=== PATIENT | male | born 1990 | race Two or more races ===

== ENCOUNTER 2018-05-29 13:06 | Emergency (ER) | payer SELFPAY ==
[2018-05-29] MEDS ORDERED: FAMOTIDINE 20 MG TABLET PO ONE (13:42)
[2018-05-29] MEDS ORDERED: ONDANSETRON 4 MG TAB.RAPDIS PO ONE (13:42)
--- NOTE | 2018-05-29 13:44 | ER Document Report ---
ED Medical Screen (RME) - General Chief Complaint: Nausea/Vomiting Stated Complaint: VOMITING BLOOD Time Seen by Provider: 05/29/18 13:23 Mode of Arrival: Ambulatory Information source: Patient Notes: 28-year-old male presents with complaint of nausea, vomiting that started 2 days prior to arrival. Patient has had 4 episodes of vomiting and noticed blood in his emesis last night and this morning. He describes it as thin streaking of blood. He denies any throwing up of clots, black stools. States he believes he was food poisoned. I have greeted and performed a rapid initial assessment of this patient. A comprehensive ED assessment and evaluation of the patient, analysis of test results and completion of medical decision making process we will be contacted by additional ED providers. PHYSICAL EXAMINATION: Vital signs reviewed-within normal limits GENERAL: Well-appearing, well-nourished and in no acute distress. LUNGS: No respiratory distress Musculoskeletal: Normal range of motion NEUROLOGICAL: Normal speech, normal gait. PSYCH: Normal mood, normal affect. SKIN: Warm, Dry, normal turgor, no rashes or lesions noted. TRAVEL OUTSIDE OF THE [place] IN LAST 30 DAYS: No - HPI Onset: Yesterday Onset/Duration: Sudden Quality of pain: Burning Severity: Mild Associated Symptoms: Chest pain, Nausea, Vomiting Exacerbated by: Denies Relieved by: Denies Similar symptoms previously: Yes Recently seen / treated by doctor: Yes - Related Data Smoking: Non-smoker Frequency of alcohol use: Occasional Drug Abuse: None Allergies/Adverse Reactions: No Known Allergies Allergy (Unverified 05/29/18 13:07) Physical Exam - Vital signs Vitals: Temp Pulse Resp BP Pulse Ox 98.9 F 93 18 116/77 97 05/29/18 13:25 05/29/18 13:25 05/29/18 13:25 05/29/18 13:25 05/29/18 13:25 Course - Vital Signs Vital signs: Temp Pulse Resp BP Pulse Ox 98.9 F 93 18 116/77 97 05/29/18 13:25 05/29/18 13:25 05/29/18 13:25 05/29/18 13:25 05/29/18 13:25
[2018-05-29 14:35] LABS: ABSOLUTE LYMPHOCYTES (AUTO) 1.2 10^3/uL (0.5-4.7); ABSOLUTE MONOCYTES (AUTO) 1.1 10^3/uL (0.1-1.4); ABSOLUTE NEUT (AUTO) 15.1 10^3/uL (1.7-8.2); BASOPHILS % (AUTO) 0.2 % (0-2); HEMATOCRIT 48.9 % (37.9-51.0); HEMOGLOBIN 17.3 g/dL (13.5-17.0); LYMPHOCYTES % (AUTO) 6.7 % (13-45); MEAN CORPUSCULAR HEMOGLOBIN 30.9 pg (27.0-33.4); MEAN CORPUSCULAR HGB CONC 35.4 g/dL (32.0-36.0); MEAN CORPUSCULAR VOLUME 87 fl (80-97); MONOCYTES % (AUTO) 6.1 % (3-13); PLATELET COUNT 226 10^3/uL (150-450); RED CELL DISTRIBUTION WIDTH 13.4 % (11.5-14.0); TOTAL CELLS COUNTED % (AUTO) 100 %; WHITE BLOOD COUNT 17.3 10^3/uL (4.0-10.5)
[2018-05-29 14:50] LABS: ALANINE AMINOTRANSFERASE 118 U/L (21-72); ALKALINE PHOSPHATASE 287 U/L (38-126); ANION GAP 14 (5-19); ASPARTATE AMINO TRANSFERASE 68 U/L (17-59); BILIRUBIN,DIRECT 0.3 mg/dL (0.0-0.4); BILIRUBIN,TOTAL 1.3 mg/dL (0.2-1.3); BLOOD UREA NITROGEN 11 mg/dL (7-20); CALCIUM 10.3 mg/dL (8.4-10.2); CARBON DIOXIDE 31 mmol/L (22-30); CHLORIDE 98 mmol/L (98-107); GLUCOSE 111 mg/dL (75-110); POTASSIUM 3.7 mmol/L (3.6-5.0); SODIUM 142.7 mmol/L (137-145); TOTAL PROTEIN 8.5 g/dL (6.3-8.2)
--- NOTE | 2018-05-29 15:02 | RADIOLOGY REPORT (SQ) ---
EXAM DESCRIPTION: CHEST 2 VIEWS COMPLETED DATE/TIME: 05/29/2018 2:54 pm REASON FOR STUDY: Chest pain COMPARISON: None. EXAM PARAMETERS: NUMBER OF VIEWS: two views TECHNIQUE: Digital Frontal and Lateral radiographic views of the chest acquired. RADIATION DOSE: NA LIMITATIONS: none FINDINGS: LUNGS AND PLEURA: No consolidation, pneumothorax or pleural effusion. MEDIASTINUM AND HILAR STRUCTURES: No masses or contour abnormalities. HEART AND VASCULAR STRUCTURES: Heart normal size. No evidence for failure. BONES: No acute findings. HARDWARE: None in the chest. IMPRESSION: NO ACUTE RADIOGRAPHIC FINDING IN THE CHEST. TECHNICAL DOCUMENTATION: JOB ID: [id number] [employer]- All Rights Reserved Reading location - IP/workstation name: [email or web address]
[2018-05-29] MEDS ORDERED: CHLORPROMAZINE HCL 50 MG TABLET PO ONE ×2 (15:05→19:08)
[2018-05-29] MEDS ORDERED: DIPHENHYDRAMINE HCL 50 MG/ML VIAL IV ONE ×2 (15:08→19:08)
--- NOTE | 2018-05-29 19:14 | ER Document Report ---
ED GI/ - General Chief Complaint: Nausea/Vomiting Stated Complaint: VOMITING BLOOD Time Seen by Provider: 05/29/18 13:23 Mode of Arrival: Ambulatory Information source: Patient, Parent Notes: Patient is a 28-year-old male who comes emergency room complaining of onset of hiccups 2-1/2 days ago and and vomiting starting 2 nights ago where he is coughing up some bloody tinged mucus. He states that it is bright red blood when he does come up. The hiccups actually been going on for 3 total days preceded all of his other discomfort and complaints. Patient denies any medical problems in the past he denies taking any medications. He does smoke a hookah 2-3 times a week. He is currently attending college. He is had some chest pain with his cough and with a constant hiccuping. There is no family history of coronary disease. TRAVEL OUTSIDE OF THE [place] IN LAST 30 DAYS: No - HPI Patient complains to provider of: Abdominal pain Onset: Other - 3 total days Timing/Duration: Sudden - With gradual increase in intensity. Quality of pain: Cramping, Pressure, Sharp Severity at maximum: Severe Severity in ED: Moderate Pain Level: 3 Location: Chest pain, Epigastric Sexual history: Active Associated symptoms: Blood in emesis, Nausea, Vomiting. denies: Blood in stool Exacerbated by: Supine Relieved by: Standing, Other - Walking Similar symptoms previously: Yes Recently seen / treated by doctor: No - Related Data Allergies/Adverse Reactions: No Known Allergies Allergy (Unverified 05/29/18 13:07) Past Medical History - General Information source: Parent, Relative - Social History Smoking Status: Current Some Day Smoker Cigarette use (# per day): No - Smokes a hookah Chew tobacco use (# tins/day): No Smoking Education Provided: Yes Frequency of alcohol use: Occasional Drug Abuse: None Lives with: Family Family History: Reviewed & Not Pertinent Patient has suicidal ideation: No Patient has homicidal ideation: No Renal/ Medical History: Denies: Hx Peritoneal Dialysis Review of Systems - Review of Systems Constitutional: No symptoms reported EENT: No symptoms reported Cardiovascular: See HPI, Chest pain Respiratory: See HPI, Cough. denies: Short of breath, Sputum, Wheezing Gastrointestinal: See HPI, Abdominal pain, Nausea, Vomiting, Poor appetite Genitourinary: No symptoms reported Male Genitourinary: No symptoms reported Musculoskeletal: No symptoms reported Skin: No symptoms reported Hematologic/Lymphatic: No symptoms reported Neurological/Psychological: No symptoms reported -: Yes All other systems reviewed and negative Physical Exam - Vital signs Vitals: Temp Pulse Resp BP Pulse Ox 98.9 F 93 18 116/77 97 05/29/18 13:25 05/29/18 13:25 05/29/18 13:25 05/29/18 13:25 05/29/18 13:25 Interpretation: Normal - Notes Notes: PHYSICAL EXAMINATION: GENERAL: Patient is a well-nourished well-developed 28-year-old male who is in no acute distress on physical exam today. However patient does not appear to be feeling well. He does appear to be somewhat ill-appearing. Patient states he could be because he has not slept in 3 days because of the hiccuping. HEAD: Atraumatic, normocephalic. EYES: Pupils equal round and reactive to light, extraocular movements intact, sclera anicteric, conjunctiva are normal. ENT: Nares patent, oropharynx clear without exudates. Moist mucous membranes. NECK: Normal range of motion, supple without lymphadenopathy LUNGS: Breath sounds clear to auscultation bilaterally and equal. No wheezes rales or rhonchi. HEART: Regular rate and rhythm without murmurs ABDOMEN: Abdominal examination shows patient to have bowel sounds in all 4 quads. The abdomen is soft and nontender with the exception of an area directly midepigastric to palpation. There is no Rivera sign and there is no left-sided tenderness. All the discomfort seems to focus midepigastric. Musculoskeletal: Normal range of motion, no pitting or edema. No cyanosis. NEUROLOGICAL: Normal speech, normal gait. Normal sensory, motor exams PSYCH: Normal mood, normal affect. SKIN: Warm, Dry, normal turgor, no rashes or lesions noted. Course - Re-evaluation Re-evalutation: 05/29/18 19:17 Patient's been in ER an extended period time today because we have been going slow. Patient was first seen by Dr. Mitchell upfront EKG was performed that showed some ST inversions in multiple leads primarily lead III 5 and 6 which were not actually convinced that they are in acute situation. We have no old EKGs to compare against. Patient did not describe cardiac type chest pain. He also had a positive stool guaiac which was also a little puzzling since patient states he is only coughed up a small amount of blood twice. On physical exam of the rectal area there were no external hemorrhoids and I do not feel any abnormalities inside. Patient appeared very uncomfortable in talking to him because he could not stop his hiccups. Every other word patient was doing a hiccup. This may be the culprit of most of his discomfort and pain. I did treat him with 50 mg of Thorazine p.o. and he got relief with that in the 25 of Benadryl I gave him IV. He was able to sleep here in the ER feels much better. I would continue him on the Thorazine at this time for the next 2-3 days. I have discussed the case with Dr. Mitchell and she is in agreement that we will get patient referral to GI as an outpatient and to have him return tomorrow for a recheck. He currently does not have a primary care physician. We will also place him on a H2 cralene and some Carafate along with the Thorazine. Patient' s labs were just mildly abnormal if 17,000 white count which may be attributed to demargination. His liver functions were just slightly above and AST and ALT of 60 and 125 of believe and a alk phos that was like 200. Again nothing totally abnormal. Patient has improved since being in the ER and as stated as the reason for sending him home. His second EKG came back with not as much amplitude in the inversions this could be because of placement or may be slightly getting better. Patient is in favor of going home and will return if he has any concerns at all. - Vital Signs Vital signs: Temp Pulse Resp BP Pulse Ox 98.9 F 93 18 116/77 97 05/29/18 13:25 05/29/18 13:25 05/29/18 13:25 05/29/18 13:25 05/29/18 13:25 - Laboratory Result Diagrams: 05/29/18 14:05 05/29/18 14:05 Laboratory results interpreted by me: 05/29/18 05/29/18 14:05 14:05 WBC 17.3 H RBC 5.60 H Hgb 17.3 H Seg Neutrophils % 87.0 H Lymphocytes % 6.7 L Absolute Neutrophils 15.1 H Carbon Dioxide 31 H Glucose 111 H Calcium 10.3 H AST 68 H ALT 118 H Alkaline Phosphatase 287 H Total Protein 8.5 H Discharge - Discharge Clinical Impression: Intractable hiccups, Upper GI bleed Gastric ulcer Qualifiers: Gastric ulcer chronicity: acute Gastric ulcer complication status: unspecified whether hemorrhage or perforation present Qualified Code(s): K25.3 - Acute gastric ulcer without hemorrhage or perforation Condition: Stable Disposition: HOME, SELF-CARE Instructions: Hiccups ([facility]), Upper Gastrointestinal Bleeding ([facility]) Additional Instructions: As we discussed we are placing a medication for the hiccups as well as stop for the abdominal bleed. Of also discussed with you that if you are not feeling 100 % better tomorrow to return to ER for recheck. Both myself Marcelo Mederos and Dr. Mitchell are here tomorrow as well. She is here from 02-20 and I am here from 2-2 if for any reason you are not feeling better or you get worse throughout the night come back sooner. I am also given you the name of the GI specialist local Dr. Solorzano might contact his office tomorrow to set up an appointment to see him. This is a gentleman that can do an upper and lower endoscopy and try to find out where your bleeding from. I have no concern that your bleeding drastically enough to put you in the hospital tonight. Prescriptions: Chlorpromazine HCl [Thorazine 50 mg Tablet] 50 mg PO Q6HP PRN #90 tablet PRN Reason: Ondansetron [Zofran Odt 4 mg Tablet] 1 - 2 tab PO Q4H PRN #15 tab.rapdis PRN Reason: For Nausea/Vomiting Ranitidine HCl 300 mg PO DAILY #30 tab Sucralfate [Carafate 1 gm Tablet] 1 gm PO ACHS #60 tablet Forms: Smoking Cessation Education, Return to School Referrals: ELHAM CHAPIN MD [ACTIVE STAFF] - Follow up as needed
[2018-05-29 20:05] VITALS: BP 110/67
--- NOTE | 2018-05-30 00:43 | EKG REPORT ---
SEVERITY:- ABNORMAL ECG - SINUS RHYTHM NONSPECIFIC T ABNORMALITIES, INFERIOR LEADS : Confirmed by: Sissy Rodriguez MD 30-May-2018 00:42:27
--- NOTE | 2018-05-30 00:43 | EKG REPORT ---
SEVERITY:- ABNORMAL ECG - SINUS RHYTHM RIGHT AXIS DEVIATION ABNORMAL T, CONSIDER ISCHEMIA, DIFFUSE LEADS : Confirmed by: Sissy Rodriguez MD 30-May-2018 00:42:39
== END 2018-05-29 20:04 | disposition home or self-care (01) ==
LOC: ER 13:06
DX: K25.0 Acute gastric ulcer with hemorrhage (principal); R06.6 Hiccough; R07.89 Other chest pain; R10.13 Epigastric pain; F17.200 Nicotine dependence, unspecified, uncomplicated; R11.2 Nausea with vomiting, unspecified; R63.0 Anorexia
CPT/HCPCS: 93005; 96376; 99284; 96374; 36415; 83690; 85025; 82272; 80053; 84484; 71046; 93010; J3490; J1200; S0119